=== PATIENT | female | born 1990 | race American Indian/Alaskan Native ===

== ENCOUNTER 2020-11-25 22:38 | Emergency (ER) | payer SELFPAY ==
[2020-11-26 02:19] VITALS: BP 149/91
== END 2020-11-26 04:36 | disposition home or self-care (01) ==
LOC: ED 22:38
DX: K08.89 Other specified disorders of teeth and supporting structures (principal); Z53.21 Procedure and treatment not carried out due to patient leaving prior to being seen by health care provider